=== PATIENT | female | born 1940 | race Hispanic/Latino ===

== ENCOUNTER 2018-05-20 16:53 | Emergency (ER) | payer OTHER, MEDICARE ==
[~2018-05-20 16:53] MED LIST: AMLO10TA4 PO; CALC1TAB3 PO; ESOM40CA PO; LEVO500T2 PO; LISI40TA4 PO; METO-391 PO; MULT1TAB70 PO; POTA10TA11 PO; RALO60TA GT; [UNRECOGNIZED DRUG - CODE] PO
[2018-05-20 17:45] LABS: BASOPHILS % (AUTO) 0.5 % (0.0-5.0); HEMATOCRIT 34.7 % (36-48); LYMPHOCYTES % (AUTO) 18.6 % (21.0-51.0); MEAN CORPUSCULAR HEMOGLOBIN 32.2 pg (27.0-33.0); MEAN CORPUSCULAR HGB CONC 34.1 g/dL (32.0-36.0); MEAN CORPUSCULAR VOLUME 94.5 fL (79-99); MONOCYTES % (AUTO) 4.8 % (3.0-13.0); NEUTROPHILS % (AUTO) 75.1 % (40.0-77.0); PLATELET COUNT (AUTO) 206 K/uL (130-400); RED BLOOD CELL COUNT(AUTO) 3.67 MIL/uL (4.00-5.50); RED CELL DISTRIBUTION WIDTH 14.4 % (11.0-15.5); WHITE BLOOD COUNT (AUTO) 11.6 K/uL (4.8-10.8)
[2018-05-20 18:09] LABS: INR 0.96 (0.85-1.15); PARTIAL THROMBOPLASTIN TIME 26.3 SEC (26.3-35.5); PROTHROMBIN TIME 10.1 SEC (9.6-11.6)
[2018-05-20 18:11] LABS: CREATININE 0.7 mg/dL (0.5-1.5); POTASSIUM 3.5 mmol/L (3.5-5.1)
[2018-05-20 18:18] LABS: ALBUMIN 3.3 g/dL (3.5-5.0); BILIRUBIN,TOTAL 0.3 mg/dL (0.2-1.0); TOTAL PROTEIN, SERUM 6.4 g/dL (6.0-8.3)
[2018-05-20 18:58] LABS: B-TYPE NATRIURETIC PEPTIDE 55 pg/mL (0-100)
[2018-05-20] MEDS ORDERED: AMOXICILLIN/POTASSIUM CLAV 875-125 TABLET PO ONE (19:34)
== END 2018-05-20 19:45 | disposition home or self-care (01) ==
LOC: EDH 16:53
DX: R13.10 Dysphagia, unspecified (principal); R07.0 Pain in throat; M54.2 Cervicalgia; R51 Headache; I10 Essential (primary) hypertension; Z90.49 Acquired absence of other specified parts of digestive tract
CPT/HCPCS: 36415; 70490; 71045; 80053; 82150; 83605; 83690; 83880; 84484; 85025; 85610; 85730; 87040; 87804; 93005

== ENCOUNTER → 2024-09-04 | Outpatient (CLI) | payer OTHER, MEDICAID ==
[~2024-09-04] MED LIST changes: +AMLO-915 PO; -AMLO10TA4 PO; +LISI40TA15 PO; -LISI40TA4 PO; +MULT-660 PO; -MULT1TAB70 PO; +POTA-183 PO; -POTA10TA11 PO; +RALO60 GT; -RALO60TA GT
--- NOTE | 2024-09-04 15:17 | HMCIMG ---
UPPER GI TRACT, WO KUB REASON: Dysphagia, unspecified. COMPARISON: 10/25/2017 TECHNIQUE: Upper GI series study was performed. FINDINGS: There may be partial obstruction to the antegrade passage of barium from mouth through duodenum. Slow transit is noted. There is large hiatal hernia with possible organoaxial volvulus. Findings were present on previous study of 10/25/2017. However, there may be decrease motility noted on compared previous study with delayed emptying. Clinical correlation is recommended. IMPRESSION: Findings as described above.
== END | disposition home or self-care (01) ==
LOC: RAH 09:27
PROVIDERS: ATTEND Internal Medicine Gastroenterology
DX: R13.10 Dysphagia, unspecified (principal)
CPT/HCPCS: 74240